=== PATIENT | male | born 1980 | race African-American/Black ===

== ENCOUNTER 2017-10-25 16:01 | Emergency (ER) | payer MEDICAID ==
[~2017-10-25] VITALS: Ht 205.7 cm; Wt 80.3 kg
[2017-10-25 16:15] VITALS: BP 132/91
== END 2017-10-25 20:05 | disposition left against medical advice (07) ==
LOC: ER 16:01
DX: M25.571 Pain in right ankle and joints of right foot (principal); Z53.21 Procedure and treatment not carried out due to patient leaving prior to being seen by health care provider

== ENCOUNTER 2017-10-26 09:56 | Emergency (ER) | payer MEDICAID ==
[~2017-10-26] VITALS: Ht 205.7 cm; Wt 80.3 kg
[2017-10-26 10:05] VITALS: BP 143/89
== END 2017-10-26 10:55 | disposition home or self-care (01) ==
LOC: ER 09:56
DX: S90.521A Blister (nonthermal), right ankle, initial encounter (principal); X58.XXXA Exposure to other specified factors, initial encounter; Y93.89 Activity, other specified; Y92.89 Other specified places as the place of occurrence of the external cause; Y99.8 Other external cause status; F17.210 Nicotine dependence, cigarettes, uncomplicated; F12.90 Cannabis use, unspecified, uncomplicated

== ENCOUNTER 2023-02-22 11:15 | Emergency (ER) | payer SELFPAY ==
[~2023-02-22] VITALS: Ht 205.7 cm; Wt 75.7 kg
[2023-02-22 13:54] VITALS: BP 112/60
== END 2023-02-22 13:57 | disposition home or self-care (01) ==
LOC: ER 11:15
DX: S09.90XA Unspecified injury of head, initial encounter (principal); F17.210 Nicotine dependence, cigarettes, uncomplicated; F12.90 Cannabis use, unspecified, uncomplicated; Y04.2XXA Assault by strike against or bumped into by another person, initial encounter; Y93.89 Activity, other specified; Y92.89 Other specified places as the place of occurrence of the external cause; Y99.8 Other external cause status
CPT/HCPCS: 70450